=== PATIENT | male | born 1975 | race Caucasian/White ===

== ENCOUNTER 2016-12-17 00:58 | Observation (INO) | payer OTHER ==
--- NOTE | ~2016-12-17 | HP ---
History And Physical [place] [id number] [facility] [place]. [address] NAME: LENY SMART : 79 STATUS : ADM Jerry PAT#: [id number] AGE: 41 ADM/REG DATE : 12/17/16 MR#: [id number] REPORT SERV DATE: 12/17/16 DICTATED BY: DATE: REPORT STATUS : Draft TRANSCRIBED BY: MODL DATE: 12/17/16 DATE OF ADMISSION: 12/17/2016 PRIMARY CARE PHYSICIAN: The patient does not have one. He did use to go to Dr. Aviles. CHIEF COMPLAINT: Chest pain. HISTORY OF PRESENT ILLNESS: This is a pleasant 41-year-old, white male without any cardiac history, who developed left-sided chest pain, 8 that was sharp and then became substernal chest pain with chest pressure, then radiated up to the neck, jaw, and left arm. He reports to have felt very nauseous, short of breath, presyncopal, diaphoretic, and cold during his chest pain event. His chest pain resolved after a third nitroglycerin was given in the ambulance. He denies any recurrence of chest pain or pressure since last night. He does report to have some dizziness when he stands up from a lying position. He also reports to have some occasional palpitations. He denies having a headache. He denies having any vision changes, weakness, or numbness or tingling anywhere. Currently, he denies any chest pain, shortness of breath, or any palpitations. The patient denies any personal history of myocardial infarction, stroke, DVTs, or pulmonary embolus. The patient denies any recent fever or syncopal episodes. Denies any orthopnea. PAST MEDICAL HISTORY: Hypertension. SURGICAL HISTORY: He has had an appendectomy, carpal tunnel to bilateral hands. 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 He walks about 2-3 miles daily and no changes in his activity recently. He denies having any shortness of breath or chest pain with activity. He reports to have smoked half a pack per week for 20 years. Currently, he still smokes less than half a pack and he also dips tobacco. He is a social occasional drinker. He denies any illicit drug use. FAMILY HISTORY: He denies a cardiac family history. He does report that his father has had hypertension. REVIEW OF SYSTEMS: A 14-point review of systems was performed significant for HPI. No other contributory diagnoses identified. ALLERGIES: NO KNOWN ALLERGIES. HOME MEDICATIONS: 1. Aspirin 162 mg p.o. daily. 2. Naproxen 220 mg p.o. p.r.n. PHYSICAL EXAMINATION: History And Physical [address] [address] NAME: LENY SMART : 79 STATUS : ADM Jerry PAT#: [id number] AGE: 41 ADM/REG DATE : 12/17/16 MR#: [id number] REPORT SERV DATE: 12/17/16 DICTATED BY: DATE: REPORT STATUS : Draft TRANSCRIBED BY: CHRISTY DATE: 12/17/16 GENERAL: Cooperative, in no apparent distress. HEENT: Head normocephalic, anicteric. Normal EOM. PERRLA. No xanthelasma. Nares patent. Moist mucous membranes. NECK: Trachea midline. No thyromegaly, JVD or bruits. RESPIRATORY: Clear to auscultation bilaterally anterior and posterior. Respirations even and unlabored. No wheezes, rhonchi or crackles. CARDIOVASCULAR: Regular rate and rhythm. No murmur, rub or gallop appreciated. No chest wall tenderness to palpation. ABDOMEN: Soft, nontender, nondistended, normal bowel sounds auscultated throughout. No masses or organomegaly. EXTREMITIES: No peripheral edema. DP/PT and radial pulses palpable bilaterally. No clubbing or cyanosis. SKIN: Warm, dry and intact. Normal turgor. No pallor or cyanosis. NEURO/PSYCH: Alert, oriented x3 with no acute distress. Affect appropriate to current situation. LABORATORY DATA: Troponin x2 less than 0.02. Sodium 142, potassium 3.8, BUN 11, creatinine 0.91, GFR 123, glucose 126, calcium 9.1. Magnesium 2.0. White blood cells 9.2, hemoglobin 14.5, hematocrit 41.1, platelets 239. INR 0.9. Chest x-ray done on 12/17/2016 shows no acute cardiopulmonary abnormality identified. EKG on 12/17/2016 at 0443 shows sinus rhythm at 71 with nonspecific Q-waves. Telemetry shows sinus rhythm at 80. VITAL SIGNS: Blood pressure 134/78, heart rate 72, temperature 98.1, respirations 18, O2 saturation 97% on room air. BMI of 44.7. ASSESSMENT AND PLAN: 1. Chest pain. Troponins x2 have been negative less than 0.02. Chest pain does not appear to be reproducible on exam. The patient has been observed in the CPOU to rule out myocardial infarction with serial enzymes and serial EKGs. Currently, the patient denies any chest pain or pressure. The patient's cardiac risk factors are hypertension, tobacco use, and obesity. We will keep the patient n.p.o. for cardiac PET today. If the stress test is low risk or no ischemia noted, RN may be discharged the patient home. If anything suggestive of ischemia, Cardiology referral will be initiated. The patient will be asked to follow up with his PCP in one week with all the studies being sent to the office. We will assign a PCP to the patient due to patient not having one at this time. 2. Hypertension appears to be stable. Currently, the blood pressure is 134/78. We will continue to monitor it. 3. Tobacco abuse. We have discussed smoking cessation. 4. Obesity. BMI 44.7. Encouraged weight and life style management and diet and exercise. EKS/MODL Wesley Ordonez APN History And Physical [address] [address] NAME: LENY SMART : 79 STATUS : ADM Jerry PAT#: [id number] AGE: 41 ADM/REG DATE : 12/17/16 MR#: [id number] REPORT SERV DATE: 12/17/16 DICTATED BY: DATE: REPORT STATUS : Draft TRANSCRIBED BY: MODL DATE: 12/17/16 / [id number] CC: Xuan Hunter, TIFFANY, STIPPLER-BC
[~2016-12-17 00:58] MED LIST: ACCU20 PO
[2016-12-17 01:24] LABS: BASOPHILS 0.3 %; BASOPHILS ABSOLUTE 0.03 10/3/uL (0.0-0.16); EOSINOPHILS 3.4 %; EOSINOPHILS ABSOLUTE 0.31 10/3/uL (0.0-0.53); ER CBC TAT 0 Hrs 05 Mins; HEMATOCRIT 41.1 % (40.0-51.0); HEMOGLOBIN 14.5 g/dL (13.6-17.8); IMMATURE GRANULOCYTES 0.1 %; IMMATURE GRANULOCYTES ABSOLUTE 0.01 10/3/uL (0.0-0.11); LYMPHOCYTES 22.5 %; LYMPHOCYTES ABSOLUTE 2.07 10/3/uL (0.67-4.30); MEAN CORPUS HGB CONC 35.3 g/dL (32.0-36.0); MEAN CORPUSCULAR HEMOGLOB 28.4 pg (26.0-34.0); MEAN PLATELET VOLUME 10.1 fL (9.2-13.0); MONOCYTES 7.4 %; MONOCYTES ABSOLUTE 0.68 10/3/uL (0.21-1.20); NEUTROPHILS 66.3 %; NEUTROPHILS ABSOLUTE 6.08 10/3/uL (2.02-8.40); PLATELET COUNT 239 10/3/uL (150-400); RBC DISTRIBUTION WIDTH 12.8 % (12.0-16.0); RED CELL COUNT 5.11 10/6/uL (4.7-6.1); WHITE BLOOD CELLS 9.2 10/3/uL (4.5-10.5)
[2016-12-17 01:28] LABS: MANUAL DIFF NO %; MEAN CORPUSCULAR VOLUME 80.4 fL (80-100)
[2016-12-17 01:46] LABS: BUN (BLOOD UREA NITROGEN) 11 MG/DL (6-23); CALCIUM, SERUM 9.1 MG/DL (8.5-10.4); CHEST PAIN PROFILE TAT 0 Hrs 27 Mins; CHLORIDE, SERUM 108 MMOL/L (96-112); CO2 (CARBON DIOXIDE) 29 MMOL/L (24-34); CREATININE 0.91 MG/DL (0.70-1.30); GFR AFRICAN AMERICAN 123 ML/MIN (>=60); GFR NON AFRICAN AMERICAN 106 ML/MIN (>=60); SODIUM, SERUM 142 MMOL/L (135-148); TROPONIN I <0.02 NG/ML (<0.05)
[2016-12-17 01:49] LABS: GLUCOSE, SERUM 126 MG/DL (60-99); POTASSIUM, SERUM 3.8 MMOL/L (3.5-5.3)
[2016-12-17 01:52] LABS: PARTIAL THROMBO TIME 27.7 SEC (22.5-37.2)
[2016-12-17 01:53] LABS: INTERNATIONAL NORMAL RATI 0.9 UNITS (-); PROTIME (NOT ORD) 12.3 SEC (12.0-14.5)
[2016-12-17] MEDS ORDERED: ASAB PO (02:47)
[2016-12-17] MEDS ORDERED: ALEVE220 MG PO (02:47)
[2016-12-17 08:57] LABS: POTASSIUM, SERUM 4.3 MMOL/L (3.5-5.3); TROPONIN I <0.02 NG/ML (<0.05)
[2016-12-17] MEDS ORDERED: NITROQUICK0.3 MG SL (17:19)
[2016-12-26] MEDS ORDERED: COREG6 PO (12:32)
[2016-12-26] MEDS ORDERED: IMDUR30 PO (12:33)
[2016-12-27] MEDS ORDERED: LIPITOR20 PO (12:53)
== END 2016-12-17 17:36 | disposition home or self-care (01) ==
LOC: ER 00:58 → CDU1 01:00
PROVIDERS: Clinical Nurse Specialist; Nurse Practitioner Acute Care
DX: R07.9 Chest pain, unspecified (principal); I10 Essential (primary) hypertension; E66.9 Obesity, unspecified; F17.210 Nicotine dependence, cigarettes, uncomplicated; Z68.41 Body mass index [BMI] 40.0-44.9, adult; Z90.49 Acquired absence of other specified parts of digestive tract; Z98.890 Other specified postprocedural states; Z82.49 Family history of ischemic heart disease and other diseases of the circulatory system; Z79.82 Long term (current) use of aspirin; Z79.899 Other long term (current) drug therapy
CPT/HCPCS: 71010; 78492; 80048; 83735; 84132; 84484; 85025; 85610; 85730; 93005; 93017; 99285; A9270-GY; A9555; G0378; J2785